=== PATIENT | male | born 1985 | race African-American/Black ===

== ENCOUNTER 2017-06-06 05:45 | Emergency (ER) | payer BC, OTHER ==
[~2017-06-06] VITALS: Ht 167.6 cm; Wt 67.6 kg
[~2017-06-06 05:45] MED LIST: FLUT1DIS IH; VENTOLIN HFA18 GM INH
--- NOTE | 2017-06-06 06:26 | PHYS DOC ---
Past Medical History Past Medical History: Asthma Past Surgical History: No Surgical History Alcohol Use: None Drug Use: None Adult General Chief Complaint Chief Complaint: ASTHMA HPI HPI Patient is a 32 year old male who presents with complaint of shortness of breath. Patient states that his symptoms started 3 days ago but acutely worsened over the past 6-7 hours. Patient states he has history of asthma and has been fighting cold symptoms over the past few days. The patient states that his breathing became more labored prompting him to use his albuterol inhaler. Patient states this is only provided minimal relief. Patient states that he has had minimally productive cough. Patient denies abdominal pain but states that he has been having nausea due to increased saliva production. Nausea also worsens with cough. Patient admits to history of smoking. Review of Systems Review of Systems Constitutional: Denies fever or chills [] Eyes: Denies change in visual acuity, redness, or eye pain [] HENT: Nasal congestion, sore throat [] Respiratory: Shortness of breath, cough [] Cardiovascular: Denies substernal chest pain or edema [] GI: Nausea, denies abdominal pain, vomiting, bloody stools or diarrhea [] : Denies dysuria or hematuria [] Musculoskeletal: Denies back pain or joint pain [] Integument: Denies rash or skin lesions [] Neurologic: Denies headache, focal weakness or sensory changes [] Current Medications Current Medications Current Medications Medications (Trade) Dose Ordered Sig/Lea Start Time Stop Time Status Last Admin Dose Admin Albuterol/ Ipratropium (Duoneb) 6 ml 1X ONCE 06/06/17 06:30 06/06/17 06:31 DC 06/06/17 06:36 6 ML Prednisone (Prednisone) 60 mg 1X ONCE 06/06/17 06:30 06/06/17 06:31 DC 06/06/17 06:22 60 MG Allergies Allergies Allergies Coded Allergies Type Severity Reaction Last Updated Verified No Known Drug Allergies 04/21/14 No Physical Exam Physical Exam Constitutional: Alert, afebrile, appears in mild to moderate respiratory distress. [] HENT: Normocephalic, atraumatic, bilateral external ears normal, oropharynx moist, no oral exudates, nose normal. [] Eyes: PERRLA, EOMI, conjunctiva normal, no discharge. [] Neck: Normal range of motion, no tenderness, supple, no stridor. [] Cardiovascular:Heart rate regular rhythm, no murmur [] Lungs & Thorax: Moderately restricted air movement bilaterally, expiratory wheezes bilaterally, no rales [] Abdomen: Bowel sounds normal, soft, no tenderness, no masses, no pulsatile masses. [] Skin: Warm, dry, no erythema, no rash. [] Back: No tenderness, no CVA tenderness. [] Extremities: No tenderness, no cyanosis, no clubbing, ROM intact, no edema. [] Neurologic: Alert and oriented X 3, normal motor function, normal sensory function, no focal deficits noted. [] Current Patient Data Vital Signs Vital Signs Date Time Temp Pulse Resp B/P (MAP) Pulse Ox O2 Delivery O2 Flow Rate FiO2 06/06/17 06:55 124 18 135/71 (92) 98 Room Air 06/06/17 05:56 99.5 99.5 Lab Values Laboratory Tests Test 06/06/17 06:19 Group A Streptococcus Rapid Negative (NEGATIVE) EKG EKG Not performed Radiology/Procedures Radiology/Procedures [facility] [address] [place] [address] IMAGING REPORT Signed PATIENT: VON VELASQUEZ ACCOUNT: [id number] : 1985 LOCATION: ER AGE: 32 SEX: M EXAM STATUS: REG ER ORD. PHYSICIAN: CAROLEE HOOVER MD REASON: cough, shortness of breath PROCEDURE: CHEST PA & LATERAL Chest x-ray Indication: Cough, shortness of breath. History of asthma Technique: PA and lateral views of the chest Comparison: Plain film from 08/14/2008 Findings: Heart is normal in size. Lungs are clear. No pneumothorax or pleural effusion. Visualized bony thorax within normal limits. Impression: No acute cardiopulmonary process. DICTATED and SIGNED BY: ABRAM NEAL DO DATE: 06/06/17 0651 CC: CAROLEE HOOVER MD; NO PCP ~ [] Course & Med Decision Making Course & Med Decision Making Pertinent Labs and Imaging studies reviewed. (See chart for details) The patient was treated with 2 DuoNeb nebulize treatments in the emergency department and was given 60 mg of oral prednisone. On reevaluation, patient's symptoms have significantly improved and patient's work of breathing is much better at this time. Patient will be continued on prednisone, azithromycin, and albuterol for outpatient treatment. Recommended follow-up in 3 days with primary doctor for reevaluation and return to emergency department for any worsening symptoms. Patient voiced understanding and in agreement with treatment plan. Dragon Disclaimer Dragon Disclaimer This electronic medical record was generated, in whole or in part, using a voice recognition dictation system. Departure Departure Impression: Primary Impression: Asthma exacerbation Disposition: HOME, SELF-CARE Condition: IMPROVED Referrals: NO PCP (PCP) Patient Instructions: Asthma, Adult Additional Instructions: Follow-up with your primary doctor in 3 days for reevaluation. Return to emergency department for any worsening symptoms. Scripts Prednisone (PREDNISONE) 20 Mg Tablet 1 TAB PO BID, #10 TAB Prov: CAROLEE HOOVER MD 06/06/17 Azithromycin (AZITHROMYCIN TABLET) 250 Mg Tablet 1 PKG PO UD, #6 TAB Prov: CAROLEE HOOVER MD 06/06/17 Albuterol Sulfate (VENTOLIN HFA INHALER) 18 Gm Hfa.aer.ad 2-4 PUFF INH Q4HRS Y for WHEEZING, #1 INHALER 0 Refills Prov: CAROLEE HOOVER MD 06/06/17 CAROLEE HOOVER MD Jun 06, 2017 06:26
[2017-06-06] MEDS ORDERED: IPRATRPIUM/ALBUTEROL 0.5/2.5MG 3 ML NEBU. NEB ONE (06:30)
[2017-06-06] MEDS ORDERED: predniSONE 20 MG TABLET PO ONE (06:30)
--- NOTE | 2017-06-06 06:55 | RAD ---
Chest x-ray Indication: Cough, shortness of breath. History of asthma Technique: PA and lateral views of the chest Comparison: Plain film from 08/14/2008 Findings: Heart is normal in size. Lungs are clear. No pneumothorax or pleural effusion. Visualized bony thorax within normal limits. Impression: No acute cardiopulmonary process.
[2017-06-06 07:32] LABS: NEGATIVE OBC STREP NEG; POSITIVE OBC STREP POS
[2017-06-06] MEDS ORDERED: VENTOLIN HFA18 GM INH (07:46)
[2017-06-06] MEDS ORDERED: PRED20TA PO (07:46)
[2017-06-06] MEDS ORDERED: AZIT250T6 PO (07:46)
[2017-06-06 07:50] VITALS: BP 129/70
== END 2017-06-06 07:55 | disposition home or self-care (01) ==
LOC: ER 05:45
DX: J45.901 Unspecified asthma with (acute) exacerbation (principal); Z87.891 Personal history of nicotine dependence; Z79.899 Other long term (current) drug therapy
CPT/HCPCS: 71020; 87070; 87880; 94250; 94640; 99285; J7512; J7620

== ENCOUNTER 2018-11-03 15:14 | Emergency (ER) | payer BC, OTHER ==
[~2018-11-03] VITALS: Ht 167.6 cm; Wt 66.7 kg
[~2018-11-03 15:14] MED LIST changes: +AZIT250T6 PO; +PRED20TA PO
[2018-11-03] MEDS ORDERED: methylPREDNISolone SOD SUCC PF 125 MG/2 ML VIAL. IV ONE (15:30)
[2018-11-03] MEDS ORDERED: VANCOMYCIN PER PHARMACY MC ONE (15:30)
[2018-11-03] MEDS ORDERED: IV NORMAL SALINE 1000ML BAG 1,000 ML IV SCH (15:30)
[2018-11-03] MEDS ORDERED: IPRATRPIUM/ALBUTEROL 0.5/2.5MG 3 ML NEBU. NEB ONE (15:30)
[2018-11-03] MEDS ORDERED: ACETAMINOPHEN 500 MG TABLET PO ONE (15:30)
--- NOTE | 2018-11-03 15:36 | PHYS DOC ---
Past Medical History Past Medical History: Asthma Past Surgical History: No Surgical History Additional Information: 10/14 ppd Alcohol Use: Occasionally Drug Use: None Adult General Chief Complaint Chief Complaint: ASTHMA HPI HPI Patient is a 33 year old male with history of asthma who presents today complaining of body aches, subjective fevers, cough, nasal congestion and shortness of breath or 3 days. Patient states he has tried using his inhaler with no relief. Review of Systems Review of Systems Constitutional: Reports fever and body aches Eyes: Denies change in visual acuity, redness, or eye pain [] HENT: Denies nasal congestion or sore throat [] Respiratory: Reports cough and shortness of breath [] Cardiovascular: No additional information not addressed in HPI [] GI: Denies abdominal pain, nausea, vomiting, bloody stools or diarrhea [] : Denies dysuria or hematuria [] Musculoskeletal: Denies back pain or joint pain [] Integument: Denies rash or skin lesions [] Neurologic: Denies headache, focal weakness or sensory changes [] All other systems were reviewed and found to be within normal limits, except as documented in this note. Current Medications Current Medications Current Medications Medications (Trade) Dose Ordered Sig/Lea Start Time Stop Time Status Last Admin Dose Admin Acetaminophen (Tylenol) 1,000 mg 1X ONCE 11/03/18 15:30 11/03/18 15:41 DC 11/03/18 16:12 1,000 MG Albuterol/ Ipratropium (Duoneb) 3 ml 1X ONCE 11/03/18 15:30 11/03/18 15:41 DC 11/03/18 16:03 3 ML Methylprednisolone Sodium Succinate (SOLU-Medrol 125MG VIAL) 125 mg 1X ONCE 11/03/18 15:30 11/03/18 15:41 DC 11/03/18 16:12 125 MG Piperacillin Sod/ Tazobactam Sod 4.5 gm/Sodium Chloride 100 ml @ 200 mls/hr 1X ONCE 11/03/18 16:00 11/03/18 16:29 DC 11/03/18 16:10 200 MLS/HR Sodium Chloride 1,000 ml @ 250 mls/hr Q4H 11/03/18 15:30 11/03/18 23:29 11/03/18 16:11 250 MLS/HR Vancomycin HCl (Vanco Per Pharmacy) 1 each 1X ONCE 11/03/18 15:30 11/03/18 15:31 UNV Vancomycin HCl 1.75 gm/Sodium Chloride 500 ml @ 250 mls/hr 1X ONCE 11/03/18 17:00 11/03/18 18:59 11/03/18 17:15 250 MLS/HR Allergies Allergies Allergies Coded Allergies Type Severity Reaction Last Updated Verified No Known Drug Allergies 04/21/14 No Physical Exam Physical Exam Constitutional: Well developed, well nourished, no acute distress, non-toxic appearance. [] HENT: Normocephalic, atraumatic, bilateral external ears normal, oropharynx moist, no oral exudates, nose normal. [] Eyes: PERRLA, EOMI, conjunctiva normal, no discharge. [] Neck: Normal range of motion, no tenderness, supple, no stridor. [] Cardiovascular:Heart rate regular rhythm, no murmur [] Lungs & Thorax: Patient appears short of air, oxygen saturation at 87% on room air, scattered wheezing throughout the lung bases Abdomen: Bowel sounds normal, soft, no tenderness, no masses, no pulsatile masses. [] Skin: Warm, dry, no erythema, no rash. [] Back: No tenderness, no CVA tenderness. [] Extremities: No tenderness, no cyanosis, no clubbing, ROM intact, no edema. [] Neurologic: Alert and oriented X 3, normal motor function, normal sensory function, no focal deficits noted. [] Psychologic: Affect normal, judgement normal, mood normal. [] Current Patient Data Vital Signs Vital Signs Date Time Temp Pulse Resp B/P (MAP) Pulse Ox O2 Delivery O2 Flow Rate FiO2 11/03/18 16:05 94 Nasal Cannula 5.0 11/03/18 15:21 101.2 121 28 126/76 (93) 101.2 Lab Values Laboratory Tests Test 11/03/18 15:51 11/03/18 16:00 11/03/18 16:35 Influenza Type A Antigen Negative (NEGATIVE) Influenza Type B Antigen Negative (NEGATIVE) White Blood Count 14.5 x10^3/uL (4.0-11.0) H Red Blood Count 5.11 x10^6/uL (4.30-5.70) Hemoglobin 17.3 g/dL (13.0-17.5) Hematocrit 49.0 % (39.0-53.0) Mean Corpuscular Volume 96 fL (79-100) Mean Corpuscular Hemoglobin 34 pg (25-35) Mean Corpuscular Hemoglobin Concent 35 g/dL (31-37) Red Cell Distribution Width 14.4 % (11.5-14.5) Platelet Count 183 x10^3/uL (140-400) Neutrophils (%) (Auto) 83 % (31-73) H Lymphocytes (%) (Auto) 5 % (24-48) L Monocytes (%) (Auto) 8 % (0-9) Eosinophils (%) (Auto) 4 % (0-3) H Basophils (%) (Auto) 0 % (0-3) Neutrophils # (Auto) 12.0 x10^3uL (1.8-7.7) H Lymphocytes # (Auto) 0.7 x10^3/uL (1.0-4.8) L Monocytes # (Auto) 1.1 x10^3/uL (0.0-1.1) Eosinophils # (Auto) 0.6 x10^3/uL (0.0-0.7) Basophils # (Auto) 0.0 x10^3/uL (0.0-0.2) Segmented Neutrophils % 79 % (35-66) H Lymphocytes % 11 % (24-48) L Monocytes % 5 % (0-10) Eosinophils % 5 % (0-5) Platelet Estimate Adequate (ADEQUATE) Large Platelets Present D-Dimer (Lisa) 0.29 ug/mlFEU (0.00-0.50) Sodium Level 140 mmol/L (136-145) Potassium Level 3.9 mmol/L (3.5-5.1) Chloride Level 102 mmol/L (98-107) Carbon Dioxide Level 28 mmol/L (21-32) Anion Gap 10 (6-14) Blood Urea Nitrogen 12 mg/dL (8-26) Creatinine 1.1 mg/dL (0.7-1.3) Estimated GFR (Cockcroft-Gault) 93.9 BUN/Creatinine Ratio 11 (6-20) Glucose Level 109 mg/dL (70-99) H Lactic Acid Level 1.7 mmol/L (0.4-2.0) Calcium Level 9.4 mg/dL (8.5-10.1) Total Bilirubin 0.5 mg/dL (0.2-1.0) Aspartate Amino Transferase (AST) 23 U/L (15-37) Alanine Aminotransferase (ALT) 30 U/L (16-63) Alkaline Phosphatase 63 U/L (46-116) Total Protein 8.3 g/dL (6.4-8.2) H Albumin 4.2 g/dL (3.4-5.0) Albumin/Globulin Ratio 1.0 (1.0-1.7) Urine Collection Type Unknown Urine Color Yellow Urine Clarity Clear Urine pH 6.0 Urine Specific [place] >=1.030 Urine Protein Negative mg/dL (NEG-TRACE) Urine Glucose (UA) Negative mg/dL (NEG) Urine Ketones (Stick) Trace mg/dL (NEG) Urine Blood Negative (NEG) Urine Nitrite Negative (NEG) Urine Bilirubin Small (NEG) Urine Urobilinogen Dipstick 0.2 mg/dL (0.2 mg/dL) Urine Leukocyte Esterase Negative (NEG) Urine RBC 0 /HPF (0-2) Urine WBC Rare /HPF (0-4) Urine Squamous Epithelial Cells Occ /LPF Urine Bacteria Few /HPF (0-FEW) Urine Mucus Mod /LPF Urine Opiates Screen Neg (NEG) Urine Methadone Screen Neg (NEG) Urine Barbiturates Neg (NEG) Urine Phencyclidine Screen Neg (NEG) Urine Amphetamine/Methamphetamine Neg (NEG) Urine Benzodiazepines Screen Neg (NEG) Urine Cocaine Screen Pos (NEG) Urine Cannabinoids Screen Neg (NEG) Urine Ethyl Alcohol Neg (NEG) Laboratory Tests 11/03/18 16:00 Laboratory Tests 11/03/18 16:00 EKG EKG 15:[address] Adams sinus rhythm HR 96 no STEMI[] Radiology/Procedures Radiology/Procedures []PROCEDURE: CHEST PA & LATERAL CHEST PA LATERAL CLINICAL INDICATION: fever COMPARISON: 2016 FINDINGS: Heart is normal in size. Consolidation is seen in the right middle lobe. Otherwise, lungs are clear. No pneumothorax or pleural effusion. Visualized bony thorax is within normal limits. IMPRESSION: Consolidation in the right middle lobe likely secondary to pneumonia. Follow-up imaging after medical therapy to ensure resolution. Electronically signed by: Donald Neal DO (11/03/2018 4:49 PM) [id number] DICTATED and SIGNED BY: DONALD NEAL DO DATE: 11/03/181647 Course & Med Decision Making Course & Med Decision Making Pertinent Labs and Imaging studies reviewed. (See chart for details) This is a 33-year-old male patient presenting to the ED today with fever, body aches, chills, cough and nasal congestion for 3 days. Patient arrives in the ED with a temperature of 101.2, heart rate 120s, O2 sats 87% on room air, respiration 27 on room air, blood pressure 126/76. Patient was started on sepsis protocol including IV fluids and antibiotics. CBC with a WBC of 14.5 and a left shift. CMP would not acute findings. Chest x- ray noted for right lower lobe pneumonia. Patient was offered admission in the hospital, he declined and signed out AMA stating he has children to take care of and nobody is available to help him. 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 He has no PCP a that. Patient was provided the risk of leaving AMA including and disability. Provided him a doctor's list for follow-up as an outpatient. Discharge him on Levaquin also given prescription for albuterol inhaler, prednisone. Dragon Disclaimer Dragon Disclaimer This electronic medical record was generated, in whole or in part, using a voice recognition dictation system. Departure Departure Impression: Primary Impression: Asthma exacerbation Additional Impressions: Fever Hypoxia Pneumonia Disposition: 07 AGAINST MEDICAL ADVICE Condition: STABLE Referrals: NO PCP (PCP) Follow-up with a primary care doctor from the list provided Patient Instructions: Asthma, Adult, Fever, Adult, Pneumonia, Adult Additional Instructions: You were evaluated in the emergency room and noted to have asthma, pneumonia, fever, and difficulty breathing. We offered you admission to the hospital which she declined. Please return to the hospital at any point you choose. Establish care with a primary care doctor and follow-up as soon as possible. Scripts Hydrocodone/Chlorphen Polis (HYDROCODONE-CHLORPHENIRAM SUSP) 5 Ml Carmela.er.12h 5 ML PO PRN Q12HR PRN for COUGH, #80 ML 0 Refills Prov: SAPNAAJACOB VENEER DRIER FEEDER 11/03/18 Prednisone (PREDNISONE) 50 Mg Tablet 1 TAB PO DAILY, #5 TAB Prov: MUTUNGA,JACOB VENEER DRIER FEEDER 11/03/18 Levofloxacin (LEVAQUIN) 500 Mg Tablet 1 TAB PO DAILY, #7 TAB Prov: MUTUNGA,JACOB VENEER DRIER FEEDER 1/22/19 Albuterol Sulfate (VENTOLIN HFA INHALER) 18 Gm Hfa.aer.ad 2 PUFF INH Q4HRS for FOR ASTHMA, #1 INHALER 0 Refills Prov: JACOB SLAUGHTER VENEER DRIER FEEDER 11/03/18 Problem Qualifiers Primary Impression: Asthma exacerbation Asthma severity: mild Asthma persistence: intermittent Qualified Codes: J45.21 - Mild intermittent asthma with (acute) exacerbation Additional Impressions: Fever Fever type: unspecified Qualified Codes: R50.9 - Fever, unspecified Pneumonia Pneumonia type: due to unspecified organism Laterality: right Lung location : lower lobe of lung Qualified Codes: J18.1 - Lobar pneumonia, unspecified organism JACOB SLAUGHTER VENEER DRIER FEEDER Nov 03, 2018 15:36
--- NOTE | 2018-11-03 15:54 | EKG ---
[facility] [address] [place] [address] Test Date: 2018-11-03 Test Time: 15:44:44 Pat Name: VON VELASQUEZ Department: Room: Gender: M [employer]ular Distributor: : 1985 Requested By: JACOB SLAUGHTER Order Number: [id number] Reading MD: Measurements Intervals [place] Rate: 96 P: 63 ID: [id number] QRS: 122 QRSD: 82 T: 45 QT: 318 QTc: 408 Interpretive Statements SINUS RHYTHM ABNORMAL RIGHT AXIS DEVIATION S1,S2,S3 PATTERN INCOMPLETE RIGHT BUNDLE BRANCH BLOCK CONSIDER RIGHT VENTRICULAR HYPERTROPHY ABNORMAL ECG RI6.01 No previous ECG available for comparison
[2018-11-03] MEDS ORDERED: PIPERACILLIN/TAZOBACTAM 4.5 GM in IV NORMAL SALINE 100ML 100 ML IV ONE (16:00)
[2018-11-03 16:16] LABS: BASO % 0 % (0-3); EOS # 0.6 x10^3/uL (0.0-0.7); EOS % 4 % (0-3); HEMOGLOBIN 17.3 g/dL (13.0-17.5); LYMPH # 0.7 x10^3/uL (1.0-4.8); LYMPH % 5 % (24-48); MEAN CORPUSCULAR HEMOGLOBIN 34 pg (25-35); MEAN CORPUSCULAR HGB CONC 35 g/dL (31-37); MEAN CORPUSCULAR VOLUME 96 fL (79-100); MONO # 1.1 x10^3/uL (0.0-1.1); MONO % 8 % (0-9); NEUT % 83 % (31-73); PLATELET COUNT 183 x10^3/uL (140-400); RED BLOOD COUNT 5.11 x10^6/uL (4.30-5.70); RED CELL DISTRIBUTION WIDTH 14.4 % (11.5-14.5); WHITE BLOOD COUNT 14.5 x10^3/uL (4.0-11.0)
[2018-11-03 16:19] LABS: INFLUENZA A PATIENT NEGATIVE (NEGATIVE); INFLUENZA B PATIENT NEGATIVE (NEGATIVE)
[2018-11-03 16:37] LABS: CALCIUM 9.4 mg/dL (8.5-10.1); CREATININE 1.1 mg/dL (0.7-1.3); GFR 93.9; POTASSIUM 3.9 mmol/L (3.5-5.1)
[2018-11-03 16:38] LABS: ALBUMIN 4.2 g/dL (3.4-5.0); TOTAL BILIRUBIN 0.5 mg/dL (0.2-1.0); TOTAL PROTEIN 8.3 g/dL (6.4-8.2)
--- NOTE | 2018-11-03 16:54 | RAD ---
CHEST PA LATERAL CLINICAL INDICATION: fever COMPARISON: 2016 FINDINGS: Heart is normal in size. Consolidation is seen in the right middle lobe. Otherwise, lungs are clear. No pneumothorax or pleural effusion. Visualized bony thorax is within normal limits. IMPRESSION: Consolidation in the right middle lobe likely secondary to pneumonia. Follow-up imaging after medical therapy to ensure resolution. Electronically signed by: Donald Carrera DO (11/03/2018 4:49 PM) [id number]
[2018-11-03 16:59] LABS: BARBITURATES NEG (NEG); BENZODIAZEPINES NEG (NEG); CANNABINOIDS NEG (NEG); COCAINE POS (NEG); METHADONE NEG (NEG); OPIATES NEG (NEG); PHENCYCLIDINE NEG (NEG)
[2018-11-03 17:00] LABS: BILIRUBIN,URINE SMALL (NEG); CLARITY,URINE CLEAR; COLOR,URINE YELLOW; NITRITE,URINE NEGATIVE (NEG); PROTEIN,URINE NEGATIVE (NEG-TRACE); UROBILINOGEN,URINE 0.2 mg/dL (0.2 mg/dL)
[2018-11-03] MEDS ORDERED: VANCOMYCIN 1.75 GM in IV NORMAL SALINE 500ML BAG 500 ML IV ONE (17:00)
[2018-11-03 17:02] LABS: AMPHETAMINE/METHAMPHETAMINE NEG (NEG)
[2018-11-03 17:06] LABS: BACTERIA,URINE FEW /HPF (0-FEW); RBC,URINE 0 /HPF (0-2); WBC,URINE RARE /HPF (0-4)
[2018-11-03 17:06] LABS: % EOS 5 % (0-5); % LYMPHS 11 % (24-48); % MONOS 5 % (0-10); % SEGS 79 % (35-66)
[2018-11-03 17:07] LABS: SQUAMOUS EPITHELIAL CELL,UR OCC /LPF
[2018-11-03 17:07] LABS: PLT ESTIMATE ADEQUATE (ADEQUATE)
[2018-11-03] MEDS ORDERED: VENTOLIN HFA18 GM INH (18:49)
[2018-11-03] MEDS ORDERED: LEVO500T59 PO (18:49)
[2018-11-03] MEDS ORDERED: HYDR5SUS PO (18:49)
[2018-11-03] MEDS ORDERED: PRED50TA PO (18:49)
[2018-11-03 20:12] VITALS: BP 125/76
== END 2018-11-03 20:22 | disposition home or self-care (01) ==
LOC: ER 15:14
DX: J18.1 Lobar pneumonia, unspecified organism (principal); J45.21 Mild intermittent asthma with (acute) exacerbation; R09.02 Hypoxemia; F17.200 Nicotine dependence, unspecified, uncomplicated
CPT/HCPCS: 36415; 71046; 80053; 80307; 81001; 83605; 85007; 85025; 85379; 87040; 87804; 93005; 94640; 96365; 96366; 96367; 96375; 99284; J2543; J2930; J3370; J7030; J7040; J7620

== ENCOUNTER 2021-03-19 07:43 | Emergency (ER) | payer BC ==
[~2021-03-19] VITALS: Ht 167.6 cm; Wt 66.3 kg
[~2021-03-19 07:43] MED LIST changes: +HYDR5SUS PO; +LEVO500T59 PO; +PRED50TA PO
--- NOTE | 2021-03-19 08:14 | ED.ADGEN ---
Past Medical History Past Medical History: Asthma Additional Past Medical Histor: reports yearly pneumonia Past Surgical History: No Surgical History Smoking Status: Current Every Day Smoker Alcohol Use: Heavy Drug Use: None General Adult EDM: Chief Complaint: SHORTNESS OF BREATH HPI: HPI: Patient is a 36 year old male coming in for asthma exacerbation. Patient states that he started having a cough when he went into work about 13 hours ago. Patient states cough is nonproductive. Denies any chest pain. States he feels like he has been wheezing. Use inhaler without improvement. Does not have an ambulance. Denies any fevers, vomiting or diarrhea. Smokes cigarettes. Has not had Covid vaccine. Review of Systems: Review of Systems: All other systems within normal limits except for as noted in the HPI Current Medications: Current Medications Medications (Trade) Dose Ordered Sig/Lea Start Time Stop Time Status Last Admin Dose Admin Albuterol/ Ipratropium (Duoneb) 3 ml 1X ONCE 03/19/21 09:00 03/19/21 09:01 DC Methylprednisolone Sodium Succinate (SOLU-Medrol 125MG VIAL) 125 mg 1X ONCE 03/19/21 08:15 03/19/21 08:16 DC 03/19/21 08:11 125 MG Sodium Chloride 1,000 ml @ 1,000 mls/hr 1X ONCE 03/19/21 08:15 03/19/21 09:14 03/19/21 08:12 1,000 MLS/HR Allergies: Allergies: Allergies Coded Allergies Type Severity Reaction Last Updated Verified No Known Drug Allergies 04/21/14 No Physical Exam: PE: Constitutional: Well developed, well nourished, no acute distress, non-toxic appearance. [] HENT: Normocephalic, atraumatic, bilateral external ears normal, nose normal. [] Eyes: PERRLA, conjunctiva normal, no discharge. [] Neck: No rigidity, supple, no stridor. [] Cardiovascular: Regular rate and rhythm, brisk cap refill [] Lungs & Thorax: Non labored symmetric respirations, no tachypnea or respiratory distress. Bilateral inspiratory and expiratory wheezing. [] Abdomen: Soft, nondistended. Skin: Warm, dry, no erythema, no rash. [] Back: Unremarkable Extremities: No deformities, range of motion grossly intact, no lower extremity edema [] Neurologic: Alert and oriented X 3, no focal deficits noted. [] Psychologic: Affect normal, judgement normal, mood normal. [] Current Patient Data: Vital Signs: Vital Signs Date Time Temp Pulse Resp B/P (MAP) Pulse Ox O2 Delivery O2 Flow Rate FiO2 03/19/21 08:48 Room Air 03/19/21 07:46 98.6 77 24 134/75 (94) 94 98.6 EKG: EKG: [] Heart Score: C/O Chest Pain: No Risk Factors: Risk Factors: DM, Current or recent (<one month) smoker, HTN, HLP, family history of CAD, obesity. Risk Scores: Score 0 - 3: 2.5% MACE over next 6 weeks - Discharge Home Score 4 - 6: 20.3% MACE over next 6 weeks - Admit for Clinical Observation Score 7 - 10: 72.7% MACE over next 6 weeks - Early Invasive Strategies Radiology/Procedures: Radiology/Procedures: [facility] [address] [place], [place] [id number] IMAGING REPORT Signed PATIENT: VON VELASQUEZ ACCOUNT: [id number] : 1985 LOCATION: ER AGE: 36 SEX: M EXAM STATUS: REG ER ORD. PHYSICIAN: FRACISCO MAE MD REASON: asthma PROCEDURE: CHEST PA & LATERAL Chest, PA and Lateral: Technique: PA and lateral views of the chest were obtained. History: Asthma. Comparison: 12/09/2019. Findings: The heart and pulmonary vasculature appear within normal limits. The lungs are clear. The pleural margins are clear. Impression: No acute chest process is seen. Electronically signed by: Dinesh Pappas MD (03/19/2021 8:49 AM) [id number] DICTATED and SIGNED BY: DINESH PAPPAS MD DATE: 03/19/21 [id number] [] Course & Med Decision Making: Course & Med Decision Making Pertinent Labs and Imaging studies reviewed. (See chart for details) [] Dragon Disclaimer: Dragon Disclaimer: This electronic medical record was generated, in whole or in part, using a voice recognition dictation system. Departure Departure Impression: Primary Impression: Asthma exacerbation Disposition: HOME / SELF CARE / HOMELESS Condition: STABLE Referrals: NO PCP (PCP) Patient Instructions: Asthma Attacks, Prevention Scripts Prednisone (PREDNISONE) 50 Mg Tablet 1 TAB PO DAILY, #5 TAB Prov: FRACISCO MAE MD 03/19/21 Albuterol Sulfate (PROAIR HFA INHALER) 8.5 Gm Hfa.aer.ad 2 PUFF IH PRN Q4-6HRS PRN for wheezing for 21 Days, #1 INHALER 0 Refills Prov: FRACISCO MAE MD 03/19/21 FRACISCO MAE MD Mar 19, 2021 08:14
[2021-03-19] MEDS ORDERED: IV NORMAL SALINE 1000ML BAG 1,000 ML IV ONE (08:15)
[2021-03-19] MEDS ORDERED: IPRATRPIUM/ALBUTEROL 0.5/2.5MG 3 ML NEBU. NEB ONE ×3 (08:15→09:00)
[2021-03-19] MEDS ORDERED: methylPREDNISolone SOD SUCC PF 125 MG/2 ML VIAL. IV ONE (08:15)
--- NOTE | 2021-03-19 08:51 | RAD ---
Chest, PA and Lateral: Technique: PA and lateral views of the chest were obtained. History: Asthma. Comparison: 12/09/2019. Findings: The heart and pulmonary vasculature appear within normal limits. The lungs are clear. The pleural ma rgins are clear. Impression: No acute chest process is seen. Electronically signed by: Dinesh Pappas MD (03/19/2021 8:49 AM) [id number]
[2021-03-19] MEDS ORDERED: ALBU2.5V8 IH (09:16)
[2021-03-19] MEDS ORDERED: PRED50TA PO (09:16)
[2021-03-19 10:27] VITALS: BP 113/58
--- NOTE | 2021-03-19 18:08 | EKG ---
[facility] [address] [place] [address] Test Date: 2021-03-19 Test Time: 07:51:38 Pat Name: VON VELASQUEZ Department: Room: Gender: M Scanning Clerk: : 1985 Requested By: FRACISCO MAE Order Number: [id number] Reading MD: Measurements Intervals [place] Rate: 76 P: 59 NC: 118 QRS: 76 QRSD: 86 T: 59 QT: 356 QTc: 405 Interpretive Statements SINUS RHYTHM QRS(T) CONTOUR ABNORMALITY CONSIDER ANTEROSEPTAL MYOCARDIAL DAMAGE POSSIBLY ABNORMAL ECG RI6.01 No previous ECG available for comparison
== END 2021-03-19 10:38 | disposition home or self-care (01) ==
LOC: ER 07:43
DX: J45.901 Unspecified asthma with (acute) exacerbation (principal); F17.200 Nicotine dependence, unspecified, uncomplicated; F10.20 Alcohol dependence, uncomplicated; Y90.9 Presence of alcohol in blood, level not specified
CPT/HCPCS: 71046; 93005; 94640; 96361; 96374; 99285; J2930; J7030